=== PATIENT | female | born 1975 | race Caucasian/White ===

== ENCOUNTER → 2024-08-06 10:50 | Outpatient (REF) | payer OTHER, SELFPAY | LOC: RCS 10:50 | PROVIDERS: ATTENDING PHYSICIAN Physician Assistant | DX: F33.1 Major depressive disorder, recurrent, moderate (principal); F43.10 Post-traumatic stress disorder, unspecified; F50.20 Bulimia nervosa, unspecified; F41.9 Anxiety disorder, unspecified | CPT/HCPCS: 93005 ==

== ENCOUNTER → 2025-02-25 12:33 | Outpatient (REF) | payer OTHER, SELFPAY | LOC: RCS 12:33 | PROVIDERS: ATTENDING PHYSICIAN Physician Assistant; FAMILY PHYSICIAN Psychiatry & Neurology Neurology | DX: F50.9 Eating disorder, unspecified (principal) | CPT/HCPCS: 93005 ==

== ENCOUNTER 2025-04-17 18:50 | Emergency (ER) | payer OTHER, SELFPAY ==
[2025-04-17 18:54] VITALS: BP 137/92
--- NOTE | 2025-04-17 20:42 | ED.GENMED ---
History of Present Illness
General
Chief Complaint: Breathing Problem
Source: patient
Exam Limitations: none
Time Seen by Provider: 04/17/25 20:35
History of Present Illness
History of Present Illness:
URI x 4 to 5 days. Some sputum. No chest pain. The symptoms are improving although she ran out of her inhaler and feels like she needs an inhaler. In addition she feels like she is going through some benzodiazepine withdrawal. She is anxious
jittery. She was recently at [facility]. There is some communication issues and pharmacy issues with her Klonopin. She normally takes point 5 in the morning and 1 mg at night. She has not had it for 3 days.
Past History
Past History
ED Past Medical History: Psychiatric (Drug addiction, eating disorder)
ED Past Surgical History: None
Social History
Tobacco: Smoker
Alcohol: None
Drug: Former user
Living: with family
Employment: Not employed
Family History
Family History: Hypertension
Review of Systems
Review of Systems
All Other Systems: Not applicable
Constitutional: Denies fever
Cardiac: Reports no symptoms
ABD/GI: Reports no symptoms
Phy Exam
Physical Exam
Physical Exam:
GENERAL: Alert and oriented. Cooperative. Mildly anxious
EYE: Orbits normal.
NECK: Supple, no significant adenopathy.
ENT: No drooling or stridor speech normal
CARDIAC: Regular rate and rhythm without any obvious murmurs.
LUNGS: No respiratory distress. Mild expiratory wheeze and rhonchi occasionally. Speech normal. No distress
NEUROLOGICAL: Alert and oriented , grossly non-focal
SKIN: Warm and dry, no rash or lesion, no discoloration, skin intact.
MUSCULOSKELETAL: No edema,no deformity.Good color
PSYCH: Mildly anxious but fully awake alert and oriented.
Scores
Heart Failure Risk
Heart Failure Risk Score: Not Applicable
Course
Orders/Labs/Results
Orders:
Orders
04/17/25 20:42
Clonazepam [Klonopin] 1 mg PO NOW STA
Ipratropium/Albuterol Sulfate [Duoneb] 3 ml INH R NOW ONE
Vital Signs
Initial and Last Documented VS:
Initial Vital Signs
Temp Pulse Resp BP Pulse Ox
97.8 F 87 18 137/92 100
04/17/25 18:54 04/17/25 18:54 04/17/25 18:54 04/17/25 18:54 04/17/25 18:54
Last Documented Vital Signs
Temp Pulse Resp BP Pulse Ox
97.8 F 87 16 137/92 100
04/17/25 18:54 04/17/25 18:54 04/17/25 21:55 04/17/25 18:54 04/17/25 20:45
MDM/Problems Addressed
Differential Diagnosis Includes:
From an asthma standpoint her URI symptoms are improving. We will give her a DuoNeb. I will give her a inhaler prescription if she needs it. I will hold on steroid inhalers at this time. With her other issues feel the steroid might not be
beneficial. As for the benzodiazepine withdrawal. Clinically it is very mild at this time. She is awake alert oriented and stable. I will give her 1 dose of Klonopin this evening. She will work out her other medications/pharmacy issues tomorrow
*Pulse Oximetry
SaO2: 100
Oxygen Mode of Delivery: Room air
Patient hypoxic: no
*Critical Care Note
Total Time (30-74mins, 75-104mins- exclusive of procedures): Not Applicable
Update Note
Update Note:
Patient standing at the desk in no distress. Will hold on steroids given her other issues. Single dose of clonazepam. Patient will follow-up closely.
ED Attending Note
-
Portions of this chart may have been created with voice recognition software.� Occasional wrong word or��sound alike� substitutions may have occurred due to the inherent limitations of voice recognition software.
Discharge Plan
Departure
Patient Disposition: Home (Routine Discharge)
Date of Disposition: 04/17/25
Time of Disposition: 21:37
Patient with high blood pressure during this ER visit?: Yes
Discharge Problem:
Acute asthma exacerbation, Early benzodiazepine withdrawal
Instructions: Asthma, Adult (DC), BLOOD PRESSURE
Prescriptions:
New
albuterol sulfate [Ventolin HFA] 90 mcg/actuation HFA aerosol inhaler
2 inh inhalation Q6H PRN (Reason: shortness of breath or wheezing) Qty: 8.5 0RF
Referrals:
Kingsley Merchant MD [Family Provider, Family Practice] - Follow up in 2-3 days
Activity Restrictions/Additional Instructions:
Follow-up tomorrow concerning your medications
Interventions
Interventions:
*Risk Screen - Suicide Last Done: 04/17/25 18:54
*General Assessment Last Done: 04/17/25 18:54
*Neglect/Abuse Screening Last Done: 04/17/25 18:54
*ED- Fall Risk Assessment Last Done: 04/17/25 18:54
*ED COVID-19 Vaccine History Last Done: 04/17/25 18:54
*ED Influenza Vaccine History Last Done: 04/17/25 18:54
*Nursing Disposition Last Done: 04/17/25 21:55
ED- Pulmonary Assessment Last Done: 04/17/25 21:31
Discharge Date and Time
Discharge Date/Time: 04/17/25 21:55
Print Language: [id number]
[2025-04-17] MEDS: DUONEB 3 ML INH (20:54)
[2025-04-17] MEDS: KLONOPIN 1 MG PO (20:55)
== END 2025-04-17 21:55 | disposition home or self-care (01) ==
LOC: EMR 18:50
PROVIDERS: EMERGENCY PHYSICIAN Emergency Medicine; FAMILY PHYSICIAN Family Medicine
DX: J45.901 Unspecified asthma with (acute) exacerbation (principal); F13.939 Sedative, hypnotic or anxiolytic use, unspecified with withdrawal, unspecified; F50.9 Eating disorder, unspecified; F17.200 Nicotine dependence, unspecified, uncomplicated
CPT/HCPCS: 99283; 94640

== ENCOUNTER 2025-05-27 19:18 | Emergency (ER) | payer OTHER, SELFPAY ==
[2025-05-27 19:25] VITALS: BP 115/89
[2025-05-27 19:31] VITALS: BMI 15.8
[2025-05-27 20:01] LABS: HCG, Serum Qualitative Screen Negative
[2025-05-27 20:06] LABS: ALT (SGPT) 28 U/L (0-35); AST (SGOT) 47 U/L (14-36); Albumin 4.1 g/dl (3.5-5.0); Alkaline Phosphatase 79 U/L (38-126); Blood Urea Nitrogen 26 mg/dl (7-17); Calcium 9.0 mg/dl (8.4-10.2); Carbon Dioxide 30 mmol/L (22-30); Chloride 96 mmol/L (98-107); Estimated Creatinine Clearance 67 ml/min; Glucose 100 mg/dl (70-99); Potassium 3.3 mmol/L (3.5-5.1); Sodium 133 mmol/L (135-145); Total Protein 6.7 g/dl (6.3-8.2); eGFR > 60.00
[2025-05-27 20:26] VITALS: BP 115/75
[2025-05-27 20:47] LABS: Hematocrit 35.4 % (37.0-47.0); Hemoglobin 11.9 g/dL (12.0-16.0); Mean Corp Hgb Conc. 33.6 g/dL (33.0-37.0); Mean Corpuscular Volume 89.6 fL (81.0-99.0); Nucleated Red Blood Cells % 0 %; Platelet Count 235 10^3/uL (130-400); Red Cell Dist. Width 13.3 % (11.5-14.5)
[2025-05-27 22:19] VITALS: BP 111/88
--- NOTE | 2025-05-27 23:30 | ED.GENMED ---
History of Present Illness
General
Chief Complaint: Breathing Problem
Time Seen by Provider: 05/27/25 21:26
History of Present Illness
History of Present Illness:
49-year-old female with history of anxiety and asthma presenting to the emergency department for for cough and shortness of breath. Patient reports symptoms for the past 3 days. Notes that the cough is productive. Also reports low-grade fevers.
Denies known sick contacts. Reports that she has been feeling very anxious, has not had a clonazepam in 2 days. Denies associated chest pain. Denies abdominal pain. Denies GI symptoms. Reports that she has been using her inhaler at home without
significant relief. Denies additional acute medical complaints
Past History
Past History
ED Past Medical History: Psychiatric (Drug addiction, eating disorder)
ED Past Surgical History: None
Social History
Tobacco: Smoker
Alcohol: None
Drug: Former user
Living: with family
Employment: Not employed
Family History
Family History: Hypertension
Phy Exam
Physical Exam
Physical Exam:
General: Well-appearing, no clinical signs of dehydration, nontoxic and in no acute distress
HEENT: protecting airway
Neck: appears supple
CV: Normal heart rate, regular rhythm
Resp: No accessory muscle use, no increased work of breathing, mild expiratory wheezing bilaterally. Rhonchi to the left lung field
Abd: Soft and non-distended, no tenderness to palpation
Extremities: No deformities, no swelling
Neuro: alert, no focal neurologic deficit
: deferred
Rectal: deferred
Psych: Normal affect
Skin: Intact
Scores
Heart Failure Risk
Heart Failure Risk Score: Not Applicable
Course
Orders/Labs/Results
Orders:
Orders
05/27/25 19:33
Test Result ONCE
05/27/25 19:39
Comprehensive Metabolic Panel Urgent
HCG, Serum Qualitative Screen Urgent
05/27/25 20:39
Complete Blood Count/With Diff Urgent
05/27/25 20:46
Chest [CR Chest - 2 Views ] Urgent
Comment:
Reason For Exam: respiratory
05/27/25 23:27
Clonazepam [Klonopin] 1 mg PO NOW STA
Dexamethasone Sod Phosphate [Decadron] 10 mg IV NOW STA
Doxycycline [Vibramycin] 100 mg PO NOW STA
Ipratropium/Albuterol Sulfate [Duoneb] 3 ml INH R NOW ONE
05/28/25 00:44
Clonazepam [Klonopin] 1 mg PO NOW STA
Abnormal Lab Results
05/27/25 05/27/25
19:39 20:39
WBC 11.4 H 10^3/uL
(4.8-10.8)
RBC 3.95 L 10^6/uL
(4.20-5.40)
Hgb 11.9 L g/dL
(12.0-16.0)
Hct 35.4 L %
(37.0-47.0)
Absolute Neuts (auto) 9.6 H 10^3/uL
(1.4-6.5)
Absolute Lymphs (auto) 0.9 L 10^3/uL
(1.2-3.4)
Absolute Monos (auto) 0.8 H 10^3/uL
(0.1-0.6)
Neutrophils % 84.1 H %
(42.2-75.2)
Lymphocytes % 7.5 L %
(20.5-51.1)
Sodium 133 L mmol/L
(135-145)
Potassium 3.3 L mmol/L
(3.5-5.1)
Chloride 96 L mmol/L
(98-107)
BUN 26 H mg/dl
(7-17)
Glucose 100 H mg/dl
(70-99)
AST 47 H U/L
(14-36)
05/27/25 20:39
05/27/25 19:39
Vital Signs
Initial and Last Documented VS:
Initial Vital Signs
Temp Pulse Resp BP Pulse Ox
98.3 F 104 18 115/89 94
05/27/25 19:25 05/27/25 19:25 05/27/25 19:25 05/27/25 19:25 05/27/25 19:25
Last Documented Vital Signs
Temp Pulse Resp BP Pulse Ox
98.3 F 92 21 106/70 96
05/27/25 19:05/28/25 01:00 05/28/25 01:00 05/28/25 01:00 05/28/25 00:30
MDM/Problems Addressed
MDM/Problems Addressed:
49-year-old female with history of anxiety and asthma presenting for cough and shortness of breath. Vital signs on arrival are significant for mild tachycardia, however patient very anxious.
On exam patient is resting comfortably, nontoxic. No increased work of breathing. However does have some wheezing and rhonchi to the lung knowles, left greater than right. Labs and chest x-ray obtained prior to my assessment. Labs show mild
leukocytosis and chest x-ray shows concern for possible left-sided pneumonia. This is consistent with patient's exam and symptoms. Patient also with some wheezing on exam with suspected component of asthma. Will treat with a DuoNeb, steroids,
doxycycline. Patient also requesting her clonazepam which we will provide.
00:40 - Patient reports interval improvement. Remains hemodynamically stable. Ultimately feel stable for discharge with outpatient therapy of her pneumonia and asthma. Prescriptions provided. Return precautions discussed and patient verbalized
understanding
*Pulse Oximetry
SaO2: 97
Oxygen Mode of Delivery: Room air
Patient hypoxic: no
*Critical Care Note
Total Time (30-74mins, 75-104mins- exclusive of procedures): Not Applicable
ED Attending Note
-
Portions of this chart may have been created with voice recognition software.� Occasional wrong word or��sound alike� substitutions may have occurred due to the inherent limitations of voice recognition software.
Discharge Plan
Departure
Patient Disposition: Home (Routine Discharge)
Date of Disposition: 05/28/25
Time of Disposition: 00:44
Patient with high blood pressure during this ER visit?: No
Condition: Good
Discharge Problem:
Pneumonia involving left lung, Asthma
Instructions: Asthma, Adult (DC), Pneumonia in adults (DC)
Prescriptions:
New
doxycycline hyclate 100 mg capsule
100 mg PO BID 7 Days Qty: 14 0RF
albuterol sulfate [Ventolin HFA] 90 mcg/actuation HFA aerosol inhaler
2 puff inhalation Q6H PRN (Reason: shortness of breath or wheezing) Qty: 8.5 0RF
(DME) nebulizer and compressor Device
See Rx Instructions .Route Qty: 1 0RF
Rx Instructions:
As directed
No Action
albuterol sulfate [Ventolin HFA] 90 mcg/actuation HFA aerosol inhaler
2 inh inhalation Q6H PRN (Reason: shortness of breath or wheezing) Qty: 8.5 0RF
Referrals:
Kingsley Merchant MD [Family Provider, Family Practice]
Activity Restrictions/Additional Instructions:
You were seen in the emergency department for cough and shortness of breath
You were found to have pneumonia to your left lung. You were started on an antibiotic. Please also use your inhaler as needed for wheezing.
Please follow-up closely with your primary care physician.
Return to the emergency department for any worsening of your symptoms, or any development of chest pain, difficulty breathing, abdominal pain with persistent vomiting and inability to tolerate food or liquid by mouth (concern for dehydration),
weakness, headache or confusion, fever greater than 100.4, or any additional symptoms that are concerning to you.
Thank you for choosing [facility].
Interventions
Interventions:
*Risk Screen - Suicide Last Done: 05/27/25 19:25
*General Assessment Last Done: 05/27/25 19:25
*Neglect/Abuse Screening Last Done: 05/27/25 19:25
*ED- Fall Risk Assessment Last Done: 05/27/25 20:15
*ED COVID-19 Vaccine History Last Done: 05/27/25 20:15
*ED Influenza Vaccine History Last Done: 05/27/25 20:15
*Nursing Disposition Last Done: 05/28/25 01:21
ED- Cardiac Assessment Last Done: 05/27/25 20:15
ED- Pulmonary Assessment Last Done: 05/27/25 20:15
Discharge Date and Time
Discharge Date/Time: 05/28/25 01:22
Print Language: [id number]
[2025-05-27] MEDS: KLONOPIN 1 MG PO (23:36)
[2025-05-27] MEDS: VIBRAMYCIN 100 MG PO (23:36)
[2025-05-27] MEDS: DUONEB 3 ML INH (23:36)
[2025-05-27] MEDS: DECADRON 10 MG IV (23:36)
[2025-05-27 23:46] VITALS: BP 110/82
[2025-05-28] VITALS: BP 124/86
[2025-05-28 01:00] VITALS: BP 106/70
[2025-05-28] MEDS: KLONOPIN 1 MG PO (01:00)
== END 2025-05-28 01:22 | disposition home or self-care (01) ==
LOC: EMR 19:18
PROVIDERS: Emergency Medicine; EMERGENCY PHYSICIAN Student in an Organized Health Care Education/Training Program; FAMILY PHYSICIAN Family Medicine
DX: J18.9 Pneumonia, unspecified organism (principal); J45.909 Unspecified asthma, uncomplicated; F17.200 Nicotine dependence, unspecified, uncomplicated
CPT/HCPCS: 96374; 94640; 99284; 71046; 80053; 84703; 85025